=== PATIENT | female | born 1960 | race Two or more races ===

== ENCOUNTER 2024-11-23 08:50 | Outpatient (AMB) | payer OTHER, SELFPAY ==
--- NOTE | 2024-11-23 09:15 | MHC.OFFVIS ---
Vital Signs 11/23/24 09:18 BP 122/72 Blood Pressure Location Lt brachial Position Sitting Pulse 61 Pulse Source Pulse Oximeter Pulse Oximetry (%) 98 Oxygen Delivery Method Room Air Intake Visit Reasons: aortitis Intake Note: Patient presents for aoritis today and knee pain. 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 Patient is scheduled as follow-up. Patient does not recall seeing me in the past before. I have changed practices from [facility] to [facility] and I do not have any records from [facility]. I was able to obtain records through [facility] EMR about patient's admission in April 2024 and 08/11/2024. She is accompanied with her son who interprets. Patient is Pashto-speaking. Patient initially presented with headache and visual disturbance (reported in PCPs note as teary eye and not actual visual disturbance) to [facility] in April and was transferred to [facility] for neurological evaluation. There was concern for GCA due to elevated inflammatory markers (ESR 40 and CRP 1.8 [facility] with repeat ESR 31 and CRP 1.5 [facility]). She had left temporal artery biopsy, which was unremarkable for GCA. She was treated at that visit with pulse dose steroids 500 mg x 3 days with benefit. MRI brain did not reveal acute process. She was prescribed a prednisone course but did not complete it due to anxiety and tremors. Her son reports that she may have taken it for 2 days. She then presented to [facility] 07/25/2024 with bilateral flank pain radiating to groin and subjective fevers. CT angio chest abdomen pelvis was performed and revealed questionable inflammatory changes involving the origin of the celiac and superior mesenteric artery concerning for large vessel vasculitis, focal stenosis of the celiac artery (patent distal to the site of stenosis). There was no evidence of aortic aneurysm or dissection. She has hepatomegaly with hepatic steatosis. Inflammatory markers were elevated with ESR 77 millimeters/hour, CRP 6.3 no units given, rheumatoid factor mildly elevated at 23.. 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 During her hospitalization she received Solu-Medrol 125 mg IV. She feels well at this time. She reports that she has headache once or twice a week but it is not localized. Headache resolves with Tylenol 1000 mg once. Denies visual changes, jaw claudication, scalp tenderness. She denies having chest pain or abdominal pain, pleurisy, dyspnea, oral ulceration or genital ulcerations, urinary symptoms, joint pain, joint swelling Or rash or Raynaud's phenomenon. No Known rheumatological family history. She has history of known right MCA aneurysm, hyperlipidemia, prediabetes, osteoarthritis, depression and anxiety. [facility] Medical History (Updated 11/25/24 @ 21:36 by Tevin Guzman MD) Abdominal pain Abnormal abdominal CT scan Vasculitis Hyperglycemia Obesity Fatigue GERD without esophagitis Anxiety Psychophysiological insomnia Knee pain Elevated rheumatoid factor Aortitis Review of Systems Const All systems reviewed & are unremarkable except as noted in HPI and below Physical Exam Vital Signs: Last Vital Signs Pulse 61 11/23/24 09:18 BP 122/72 11/23/24 09:18 Pulse Ox 98 11/23/24 09:18 Oxygen Delivery Method Room Air 11/23/24 09:18 Const Other: General: Comfortable CVS: RRR Respiratory: clear to auscultation bilaterally. Good respiratory effort Skin: No lesions seen Abdomen: Tender to palpate left lower abdomen. Soft. No guarding. MSK: No temporal tenderness. No jaw tenderness on palpation. No tenderness of any joints. No synovitis. Good ROM UE and LE. +2 radial pulses bilateral. Assessment & Plan Assessment & Plan (1) Large vessel vasculitis: Comment: suspected based on CTA chest/abdomen/pelvis revealing questionable inflammatory changes involving the origin of the celiac and superior mesenteric artery concerning for large vessel vasculitis, focal stenosis of the celiac artery and elevated inflammatory markers (ESR 77 and CRP 6.3) 07/2024 hospitalization. L TA bx negative. Her current headache is intermittent and not suggestive of headache assocaited with GCA. She did not tolerate prednisone after 2 days on 2 separate occasions (04/2024 and 07/2024) due to anxiety, insomnia, tremor, mood liability, weakness, fatigue and discontinued it. She is asymptomatic at this time. I will need to repeat imaging and inflammatory markers. Code(s): M31.6 - Other giant cell arteritis Category: Medical Plan: Labs ordered for baseline including inflammatory markers I will repeat CTA chest, abdomen, pelvis urgent follow-up study. If she indeed has imaging findings of large vessel vasculitis, I will need to consider methylprednisolone with Actemra to treat disease as patient could not tolerate prednisone. If CTAs do not show definite changes of LVV but remain questionable, I will need to pursue MRAs for further evaluations as LVV is a lifethreatening condition if left untreated. Return to clinic in 1 month or sooner if CTA results become available Orders: Orders Erythrocyte Sedimentation Rate 11/23/24 I77.6 - Arteritis, unspecified C Reactive Protein 11/23/24 I77.6 - Arteritis, unspecified Aspartate Amino Transferase 11/23/24 Z79.60 - lecturer in computer science (current) use of unspecified immunomodulators and immunosuppressants Complete Blood Count Auto Diff 11/23/24 Z79.60 - lecturer in computer science (current) use of unspecified immunomodulators and immunosuppressants Alanine Aminotransferase 11/23/24 Z79.60 - nursing home (current) use of unspecified immunomodulators and immunosuppressants Creatinine 11/23/24 Z79.60 - lecturer in computer science (current) use of unspecified immunomodulators and immunosuppressants Coding Level of Care Code New Pt Level 5 (24116) Diagnoses Large vessel vasculitis M31.6 Time Spent (min) 60 Comment Face to face consultation with patient and reviewing records
[2024-11-23 09:18] VITALS: BP 122/72; PULSE 61; O2SAT 98
== END 2024-11-23 10:16 | disposition home or self-care (01) ==
PROVIDERS: PCP Internal Medicine; Visit Provider Internal Medicine Rheumatology
DX: M31.6 Other giant cell arteritis (principal)
CPT/HCPCS: 99205

== ENCOUNTER 2024-11-23 08:50 | Outpatient (REF) | payer OTHER, SELFPAY ==
[2024-11-23 13:06] LABS: MANUAL DIFF FLAG NO
[2024-11-23 13:14] LABS: Basophils Percent Auto 0.5 % (0-2); Eosinophils Absolute Auto 0.2 X10*3/uL (0.0-0.4); Eosinophils Percent Auto 1.9 % (0-4); Imm Gran Abs Auto 0.03 X10*3/uL (0.00-0.03); Imm Gran Pct Auto 0.3 % (0.0-0.4); Lymphocytes Percent Auto 46.2 % (20-40); Mean Corpuscular HGB Conc 33.3 g/dl (31.0-35.0); Mean Corpuscular Hemoglobin 28.3 pg (27.0-33.0); Mean Corpuscular Volume 84.8 fL (80.0-98.0); Mean Platelet Volume 11.5 fL (9.4-12.3); Monocytes Absolute Auto 0.6 X10*3/uL (0.1-1.2); Monocytes Percent Auto 6.6 % (2-11); Neutrophils Absolute Auto 3.8 x10*3/uL (2.0-8.3); Neutrophils Percent Auto 44.5 % (45-73); Platelet Count 313 X10*3/uL (160-400); Red Blood Count 4.95 X10*6/uL (4.20-5.50); Red Cell Distribution Width 12.5 % (11.0-16.0); White Blood Count 8.6 X10*3/uL (4.8-10.8)
[2024-11-23 13:25] LABS: Alanine Aminotransferase 22 U/L (0-31); Aspartate Amino Transferase 27 U/L (5-31); C Reactive Protein 1.53 mg/dL (< or = 0.50); Estimated Glomerular Filt Rate > 60
[2024-11-23 13:49] LABS: Erythrocyte Sedimentation Rate 51 MM/HR (0-20)
== END 2024-11-23 08:51 | disposition home or self-care (01) ==
LOC: HO.HMGCLDS 08:50
PROVIDERS: PCP Internal Medicine; Visit Provider Internal Medicine Rheumatology
DX: I77.6 Arteritis, unspecified (principal); Z79.60 Long term (current) use of unspecified immunomodulators and immunosuppressants; M31.6 Other giant cell arteritis
CPT/HCPCS: 36415; 82565; 84450; 84460; 85025; 85652; 86140; 99202

== ENCOUNTER 2025-01-02 14:18 | Outpatient (REF) | payer MEDICARE, MEDICAID, SELFPAY ==
--- OUTSIDE RECORDS SUMMARY | 2025-01-03 08:57 | XMS_ITS | Clinical Summary ---
Author Organization [facility] Address [address] [place] [address] Phone Care Team Providers Care Retail Seasonal Specialist Name Role Phone Physician, No Pcp Primary Care Provider Unavaila ble Allergies No known active allergies Medications No known medications Active Problems No known active problems Encounters Date Type Department Care Team Description 11/18/2024 6:12 PM EST - 11/18/2024 7:53 PM EST Emergency [facility] Emergency [address] [place] [address] Adenovirus infection (Primary Dx); Acute non-recurrent maxillary sinusitis Discharge Disposition: Home or Self Care from Last 3 Months Medical History Medical History Date Comments Hyperlipidemia Anxiety Prediabetes Social History Tobacco Use Types Packs/Day Years Used Date Smoking Tobacco: Never Assessed Comments Unknown Sex and Gender Information Value Date Recorded Sex Assigned at Female 11/18/2024 6:21 PM EST Legal Sex Female 1:56 PM EST Gender Identity Female 11/18/2024 6:21 PM EST Sexual Orientation Straight 11/18/2024 6: 21 PM EST Obstetrics History Last Filed Vital Signs Vital Sign Reading Time Taken Comments Blood Pressure 149/84 11/18/2024 7:14 PM EST Pulse 63 11/18/2024 7:14 PM EST Temperature 36.4 ??C (97.5 ??F) 11/18/2024 7:14 PM ES T Respiratory Rate 18 11/18/2024 7:14 PM EST Oxygen Saturation 97% 11/18/2024 7:14 PM EST Inhaled Oxygen Concentration - - Weight 63.5 kg (140 lb) 11/18/2024 2:14 PM EST Height 157.5 cm (5' 2 ) 11/18/2024 2:14 PM EST Body Mass Index 25.61 11/18/2024 2:14 PM EST Plan of Treatment Health Maintenance Due Date Last Done Comments Breast Cancer Screening 1960 Cholesterol Screening (Lipid Panel) 10/21/2022 Colorectal Cancer Screening: Colonoscopy 10/21/2022 Depression Screening 10/21/2022 Hepatitis C Screening 10/21/2022 Medicare Annual Wellness Visit 10/21/2022 Osteoporosis Screening (Bone Density Screening) 10/21/2022 Social Influencers of Health Screening 10/21/2022 Falls Risk Assessment 2023 Zoster Vaccines (2 of 2) 06/11/2024 04/16/2024 COVID-19 Vaccine (1 - season) 2024 Influenza Vaccine (#1) 2024 , 04/16/2022, 12/01/2019, Additional history exists DTaP,Tdap,and Td Vaccines (2 - Td or Tdap) 05/28/2025 05/28/2015 RSV Immunization Patients 60+ Years Old (1 - 1-dose 75+ series) 2033 Pneumococcal Vaccine: 50+ Years Completed 12/29/2023 HIB Vaccines Aged Out No longer eligi ble based on patient's age to complete this topic HPV Vaccines Aged Out No longer eligi ble based on patient's age to complete this topic Hepatitis A Vaccines Aged Out No long er eligible based on patient's age to complete this topic Hepatitis B Vaccines Aged Out No long er eligible based on patient's age to complete this topic IPV Vaccines Aged Out No longer eligi ble based on patient's age to complete this topic MMR Vaccines Aged Out No longer eligi ble based on patient's age to complete this topic Meningococcal ACWY Vaccine Aged Out N o longer eligible based on patient's age to complete this topic RSV Immunization Patients Under 20 months Aged Out No longer eligible based on patient's age to complete this topic Varicella Vaccines Aged Out No longer eligible based on patient's age to complete this topic Procedures Procedure Name Priority Date/Time Associated Diagnosis Comments RESPIRATORY VIRUS PANEL MOLECULAR STUDY STAT 11/18/2024 2:17 PM EST from Last 3 Months Results * (ABNORMAL) Respiratory virus panel molecular study (11/18/2024 2:17 PM EST) [facility] Adenovirus Detection by PCR Detected(A ) Not Detected LAB MICROBIOLOGY METHOD 11/18/2024 3:58 PM EST [facility] Influenza A PCR Not Detected Not Detected LAB MICROBIOLOGY METHOD 11/18/2024 3:58 PM EST [facility] Influenza B PCR Not Detected Not Detected LAB MICROBIOLOGY METHOD 11/18/2024 3:58 PM EST [facility] Coronavirus 229E Not Detected Not Detected LAB MICROBIOLOGY METHOD 11/18/2024 3:58 PM EST [facility] Coronavirus HKU1 Not Detected Not Detected LAB MICROBIOLOGY METHOD 11/18/2024 3:58 PM EST [facility] Coronavirus OC43 Not Detected Not Detected LAB MICROBIOLOGY METHOD 11/18/2024 3:58 PM EST [facility] Coronavirus NL63 Not Detected Not Detected LAB MICROBIOLOGY METHOD 11/18/2024 3:58 PM EST [facility] Parainfluenza Virus 1 Not Detected Not Detected LAB MICROBIOLOGY METHOD 11/18/2024 3:58 PM EST [facility] Parainfluenza Virus 2 Not Detected Not Detected LAB MICROBIOLOGY METHOD 11/18/2024 3:58 PM EST [facility] Parainfluenza Virus 3 Not Detected Not Detected LAB MICROBIOLOGY METHOD 11/18/2024 3:58 PM EST [facility] Parainfluenza Virus 4 Not Detected Not Detected LAB MICROBIOLOGY METHOD 11/18/2024 3:58 PM EST [facility] RSV PCR Not Detected Not Detected LAB MICROBIOLOGY METHOD 11/18/2024 3:58 PM EST [facility] Human Metapneumovirus A and B Not Detected Not Detected LAB MICROBIOLOGY METHOD 11/18/2024 3:58 PM EST [facility] Rhinovirus/Entero virus Not Detected Not Detected LAB MICROBIOLOGY METHOD 11/18/2024 3:58 PM EST [facility] Bordetella pertussis Not Detected Not Detected LAB MICROBIOLOGY METHOD 11/18/2024 3:58 PM EST [facility] Bordetella parapertussis Not Detected Not Detected LAB MICROBIOLOGY METHOD 11/18/2024 3:58 PM EST [facility] Mycoplasma pneumo by PCR Not Detected Not Detected LAB MICROBIOLOGY METHOD 11/18/2024 3:58 PM EST [facility] Chlamydia pneumoniae Not Detected Not Detected LAB MICROBIOLOGY METHOD 11/18/2024 3:58 PM [facility] SARS COV-2 Not Detected Not Detected LAB MICROBIOLOGY METHOD 11/18/2024 3:58 PM [facility] Swab Both anterior nares / Unknown Non-blood Collection / Unknown 11/18/2024 2:17 PM EST 11/18/2024 2:40 PM EST [facility] - 11/18/2024 3:58 PM EST Testing was performed using the [employer] Respiratory Pathogen PCR Assay. All results must be correlated with the clinical findings. Results should not be used as the sole basis for diagnosis. False Negative results may occur from the presence of sequence variants in the region targeted by the assay or the presence of inhibitors. Results may be affected by concurrent antiviral/antimicrobial therapy or levels of organisms that are below the limit of detection. Rios Gomes MD LAB MICROBIOLOGY - GENERA L ORDERABLES Final Result [facility] [address] [place] [address], from Last 3 Months Additional Health Concerns Infection Onset Date Last Indicated Adenovirus 11/18/2024 11/18/2024 [place] Care Teams Retail Seasonal Specialist Relationship Specialty Start Date End Date Physician, No Pcp PCP - General 11/18/24
== END 2025-01-02 14:19 | disposition home or self-care (01) ==
LOC: HO.CT 14:18
PROVIDERS: PCP Internal Medicine; Visit Provider Internal Medicine Rheumatology
DX: M31.6 Other giant cell arteritis (principal)
CPT/HCPCS: 99212

== ENCOUNTER 2025-01-02 14:19 | Outpatient (AMB) | payer MEDICARE, MEDICAID, SELFPAY ==
--- NOTE | 2025-01-02 14:24 | MHC.OFFVIS ---
Vital Signs 01/02/25 14:26 Height 5 ft 3 in Weight 186 lb 8 oz BMI 33.0 BP 122/74 Blood Pressure Location Rt brachial Position Sitting Pulse 62 Pulse Source Pulse Oximeter Pulse Oximetry (%) 96 Oxygen Delivery Method Room Air Intake Visit Reasons: Follow Up 1mo Intake Note: Patient present follow up Accompanied by: Son Allergies No Known Allergies Allergy (Verified 01/02/25 14:27) [facility] HPI Follow Up 1mo: Details: Son interprets. Serbian speaking patient. 3 weeks ago she has abdominal pain lasting a week, improving in frequency. Last abdominal pain was 2 days ago. Discomfort is always there. Hx GERD on PPI. No fevers, headaches, jaw pain, scalp pain, vision loss, diarrhea, constipation, urinary symptoms, joint swelling, rash, oral ulcers. She had an episode of bloody stools 2 days ago without recurrence. Denies having hemorrhoids. Hx of surgery for hemorrhoids in the past. [facility] Medical History Abdominal pain Abnormal abdominal CT scan Vasculitis Hyperglycemia Obesity Fatigue GERD without esophagitis Anxiety Psychophysiological insomnia Knee pain Elevated rheumatoid factor Aortitis Review of Systems Const All systems reviewed & are unremarkable except as noted in HPI and below Physical Exam Vital Signs: Last Vital Signs Pulse 62 01/02/25 14:26 BP 122/74 01/02/25 14:26 Pulse Ox 96 01/02/25 14:26 Oxygen Delivery Method Room Air 01/02/25 14:26 BMI result Body Mass Index 33.0 Const Other: General: Comfortable CVS: RRR Respiratory: clear to auscultation bilaterally. Good respiratory effort Skin: No lesions seen Abdomen: Tender to palpate epigastrium. Soft. No guarding. MSK: No temporal tenderness. No jaw tenderness on palpation. No tenderness of any joints. No synovitis. Good ROM UE and LE. +2 radial pulses bilateral. Assessment & Plan Assessment & Plan (1) Large vessel vasculitis: Comment: suspected based on CTA chest/abdomen/pelvis revealing questionable inflammatory changes involving the origin of the celiac and superior mesenteric artery concerning for large vessel vasculitis, focal stenosis of the celiac artery and elevated inflammatory markers (ESR 77 and CRP 6.3) 07/2024 hospitalization. L TA bx negative. Recent laboratory workup revealed persistent elevation of inflammatory markers with ESR 51 millimeters/hour and CRP 1.53 mg/dL. She has been experiencing abdominal pain for the last 3 weeks. CTA chest/abdomen/pelvis are scheduled in January, which I have asked to move up for evaluation of large vessel vasculitis as it will necessitate immunosuppressive therapy tocilizumab. Of note, she did not tolerate prednisone after 2 days on 2 separate occasions (04/2024 and 07/2024) due to anxiety, insomnia, tremor, mood liability, weakness, fatigue and discontinued it. Code(s): M31.6 - Other giant cell arteritis Category: Medical Plan: Laboratory workup for vasculitis ordered CTA chest/abdomen/pelvis scheduled for January 23. My staff has requested Radiology to move up the appointment as it was ordered as urgent (1-2 weeks). We discussed dietary triggers that are associated with GERD. I recommend that she avoid spicy food, tomato sauce, caffeinated drinks, and chocolate Return to clinic in 1 month or sooner if imaging results are available sooner Orders: Orders Proteinase 3 PR3 Antibodies Today M31.6 - Other giant cell arteritis Cryoglobulin Today M31.6 - Other giant cell arteritis C Reactive Protein Today M31.6 - Other giant cell arteritis Erythrocyte Sedimentation Rate Today M31.6 - Other giant cell arteritis ESTEBAN Reflex Titer and Pattern Today M31.6 - Other giant cell arteritis Cyclic Citrullinated Peptide Today M31.6 - Other giant cell arteritis Other Ref Test - Misc Today I77.6 - Arteritis, unspecified, M31.6 - Other giant cell arteritis ANCA Vasculitides Today M31.6 - Other giant cell arteritis Myeloperoxidase Antibody Today M31.6 - Other giant cell arteritis UA w Microscopic Today M31.6 - Other giant cell arteritis Protein Creatinine Ratio, Ur Today M31.6 - Other giant cell arteritis Rheumatoid Factor Today M31.6 - Other giant cell arteritis Protein Electrophoresis, Serum Today M31.6 - Other giant cell arteritis IgE Antibody (Anti-IgE IgG) Today M31.6 - Other giant cell arteritis Coding Level of Care Code Est Pt Level 4 (59246) Complex EM visit Add On G2211 Diagnoses Large vessel vasculitis M31.6
[2025-01-02 14:26] VITALS: BP 122/74; PULSE 62; O2SAT 96; BMI 33.0
== END 2025-01-02 15:21 | disposition home or self-care (01) ==
PROVIDERS: PCP Internal Medicine; Visit Provider Internal Medicine Rheumatology
DX: M31.6 Other giant cell arteritis (principal)
CPT/HCPCS: 99214; G2211

== ENCOUNTER 2025-01-15 13:48 | Outpatient (REF) | payer MEDICARE, MEDICAID, SELFPAY ==
--- NOTE | ~2025-01-15 | CT_ITS ---
EXAMINATION: CT ANGIOGRAM CHEST CLINICAL INFORMATION: Patient had CTA chest/abdomen/pelvis 08/11/2024 [facility] revealing questionable inflammatory changes involving the origins of the celiac and superior mesenteric artery concerning for large vessel vasculitis, focal stenosis of the celiac artery (patent distal to site of stenosis). Elevated inflammatory markers. Negative left temporal artery biopsy for GCA. Follow-up study to evaluate for large vessel vasculitis. COMPARISON: None available. The prior study is not available for direct comparison. TECHNIQUE: Multiple axial images were obtained through the chest after the administration of 85 mL of Omnipaque 350 intravenous contrast. Acquisition acquired in arterial phase. Examination is not gated. Extensive vascular post-processing including two-dimensional and three-dimensional reformatted images were created and reviewed on an independent workstation. This CT examination was performed using dose optimization techniques as appropriate, variously including the following: *Automated exposure control *Adjustment of mA and/or kV according to patient size (this includes techniques or standardized protocols for targeted exams where dose is matched to indication/reason for exam; i.e. extremities or head) *Use of iterative reconstruction technique FINDINGS: VASCULAR: The aorta is normal in caliber and course without significant atheromatous calcification. The aortic root appears normal. There is no aneurysm or acute aortic syndrome. No wall thickening or inflammation. There is a left aortic arch with an aberrant right subclavian artery. Great vessels are normal in caliber and mildly tortuous proximally. The subclavian arteries, brachiocephalic artery, and common carotid arteries are normal in caliber. There are no stenoses or findings of vasculitis. No inflammation or wall thickening evident. Left vertebral artery is dominant. Vertebral origins are otherwise normal. The main pulmonary artery is normal in size. There is no evidence of pulmonary embolus. Heart size is normal. There is no pericardial effusion. No significant coronary calcification evident. LUNGS: The lungs are clear bilaterally. There is no evidence of inflammation, abnormal opacity, or suspicious pulmonary nodule. There are no pleural effusions and there is no pneumothorax. Small and large airways are normal. MEDIASTINUM: There is no mass or lymphadenopathy in the mediastinum. The trachea and main bronchi are patent. The esophagus is unremarkable. The thyroid is partially imaged and normal. AXILLA/CHEST WALL: No mass or lymphadenopathy. UPPER ABDOMEN: Refer to the dedicated CT angiogram abdomen and pelvis report, performed concurrently. OSSEOUS STRUCTURES: Unremarkable. CT/CT angio chest aorta IMPRESSION: 1. CT angiogram thorax demonstrate a normal aorta and branches. There are no findings of inflammation, acute aortic syndrome, or aneurysm. There is no significant atheromatous plaque identified. There are no stenoses or narrowings of the major arterial structures. 2. There is a left aortic arch with an aberrant right subclavian artery. 3. The lungs are clear without evidence of active disease. 4. Refer to the dedicated CT angiogram abdomen and pelvis performed concurrently Electronically signed by: Gavino Cantor MD 01/15/2025 04:10 PM [facility] [place]
--- NOTE | ~2025-01-15 | CT_ITS ---
EXAMINATION: CT ANGIOGRAM ABDOMEN AND PELVIS CLINICAL INFORMATION: Patient had CTA chest/abdomen/pelvis 08/11/2024 [facility] revealing questionable inflammatory changes involving the origins of the celiac and superior mesenteric artery concerning for large vessel vasculitis, focal stenosis of the celiac artery (patent distal to site of stenosis). Elevated inflammatory markers. Negative left temporal artery biopsy for GCA. Follow-up study to evaluate for large vessel vasculitis. COMPARISON: Comparison exam from [facility] is not available. TECHNIQUE: Multiple axial images were obtained through the abdomen and pelvis following the administration of 100 mL of Omnipaque 350 intravenous contrast. Acquisition obtained in the arterial phase. Images were reviewed on a dedicated 3-D workstation and multiplanar and MIPPED reformatted images were constructed from the axial data set.. This CT examination was performed using dose optimization techniques as appropriate, variously including the following: *Automated exposure control *Adjustment of mA and/or kV according to patient size (this includes techniques or standardized protocols for targeted exams where dose is matched to indication/reason for exam; i.e. extremities or head) *Use of iterative reconstruction technique FINDINGS: VASCULAR: Aorta is normal in caliber without aneurysm or dissection. There is minimal atheromatous calcification. The celiac artery is mildly narrowed at the origin due to calcific plaque. Remainder of the vessel and its branches are normal in caliber without narrowing, wall thickening, or inflammation. There are no inflammatory changes surrounding the ostia. The SMA also demonstrates a mild stenosis at the origin secondary to soft and calcific plaque. The remainder of the vessel and its branches are normal in caliber without narrowing, wall thickening, or inflammation. There are no inflammatory changes surrounding the ostia. There are paired left main renal arteries which the lower is dominant, without narrowing or stenosis. There is a solitary right renal artery, which is widely patent without stenosis. The CHAPITO is normal in caliber and course with normal opacification of the distal branches. The common iliac arteries, hypogastric arteries, and external iliac arteries are normal in caliber and course without narrowing. The imaged common femoral, and profunda femoral arteries are normal in caliber without stenoses. LIVER, GALLBLADDER, AND BILIARY TREE: There is mild diffuse fatty infiltration of the liver. There are no suspicious liver findings or masses. There is no intra or extrahepatic biliary dilatation. The gallbladder has a normal appearance. The main portal vein is patent. PANCREAS: Normal. SPLEEN: Normal allowing for contrast phase. ADRENAL GLANDS AND KIDNEYS: Adrenals are normal. The kidneys are normal. The ureters are nondilated. BOWEL: The stomach is somewhat decompressed. Duodenum is normal. The small bowel is normal in caliber and course without inflammation or wall thickening. The colon is normal in caliber and course without wall thickening or inflammation. The rectum is normal. There are no CT features of appendicitis. LYMPH NODES: None enlarged by size criteria. OSSEOUS STRUCTURES: Mild degenerative changes in the hip joints. Mild degenerative changes spine. No suspicious lytic or blastic bone lesions. CT/CT angio abdomen pelvis IMPRESSION: 1. There are no CT features of vasculitis, aortic aneurysm, or significant aortic or branch stenosis. There are mild stenoses at the origin of the celiac artery and SMA which appear to be secondary to mild plaque. Remainder of the vessels are normal. No inflammatory changes surrounding the ostia. 2. There is minimal atheromatous plaque of the aorta and branches. 3. There is mild fatty infiltration of the liver. 4. See the body of the report for details. Electronically signed by: Gavino Cantor MD 01/15/2025 04:27 PM [facility]
[2025-01-15] MEDS: iohexoL 350 MG/ML 75 ML INFUS..BTL 80 ML IV (15:24)
[2025-01-15 15:43] LABS: Creatinine POC 0.7 mg/dL (0.5-1.4); GFR POC > 60
--- OUTSIDE RECORDS SUMMARY | 2025-01-15 15:48 | XMS_ITS | Clinical Summary ---
Author Organization [facility] Address [address] [place] [address] Phone Care Team Providers Care Chronic Disease Epidemiologist Name Role Phone Physician, No Pcp Primary Care Provider Unavaila ble Allergies No known active allergies Medications No known medications Active Problems No known active problems Encounters Date Type Department Care Team Description 11/18/2024 6:12 PM EST - 11/18/2024 7:53 PM EST Emergency [facility] Emergency [address] [place] [address] Adenovirus infection (Primary Dx); Acute [...] patient's age to complete this topic Meningococcal B Vacine Aged Out No lo nger eligible based on patient's age to complete [...] panel molecular study (11/18/2024 2:17 PM EST) Adenovirus Detection by PCR Detected(A ) Not Detected LAB MICROBIOLOGY METHOD 11/18/2024 3:58 PM EST [facility] Influenza A PCR Not Detected Not Detected LAB MICROBIOLOGY METHOD 11/18/2024 3:58 PM EST [facility] Influenza B PCR Not Detected Not Detected LAB MICROBIOLOGY METHOD 11/18/2024 3:58 PM EST [facility] Coronavirus 229E Not Detected Not Detected LAB MICROBIOLOGY METHOD 11/18/2024 3:58 PM [facility] Coronavirus HKU1 Not Detected Not Detected LAB MICROBIOLOGY METHOD 11/18/2024 3:58 PM EST [facility] Coronavirus OC43 Not Detected Not Detected LAB MICROBIOLOGY METHOD 11/18/2024 3:58 PM EST [facility] Coronavirus NL63 Not Detected Not Detected LAB MICROBIOLOGY METHOD 11/18/2024 3:58 PM [facility] Parainfluenza Virus 1 Not Detected Not Detected LAB MICROBIOLOGY METHOD 11/18/2024 3:58 PM [facility] Parainfluenza Virus 2 Not Detected Not Detected LAB MICROBIOLOGY METHOD 11/18/2024 3:58 PM [facility] Parainfluenza Virus 3 Not Detected Not Detected LAB MICROBIOLOGY METHOD 11/18/2024 3:58 PM [facility] Parainfluenza Virus 4 Not Detected Not Detected LAB MICROBIOLOGY METHOD 11/18/2024 3:58 PM EST [facility] RSV PCR Not Detected Not Detected LAB MICROBIOLOGY METHOD 11/18/2024 3:58 PM [facility] Human Metapneumovirus A and B Not Detected Not Detected LAB MICROBIOLOGY METHOD 11/18/2024 3:58 PM [facility] Rhinovirus/Entero virus Not Detected Not Detected LAB MICROBIOLOGY METHOD 11/18/2024 3:58 PM EST [facility] Bordetella pertussis Not Detected Not Detected LAB MICROBIOLOGY METHOD 11/18/2024 3:58 PM EST [facility] Bordetella parapertussis Not Detected Not Detected LAB MICROBIOLOGY METHOD 11/18/2024 3:58 PM EST [facility] Mycoplasma pneumo by PCR Not Detected Not Detected LAB MICROBIOLOGY METHOD 11/18/2024 3:58 PM EST [facility] Chlamydia pneumoniae Not Detected Not Detected LAB MICROBIOLOGY METHOD 11/18/2024 3:58 PM EST [facility] SARS COV-2 Not Detected Not Detected LAB MICROBIOLOGY METHOD 11/18/2024 3:58 PM [facility] Swab Both anterior nares / Unknown Non-blood Collection / Unknown 11/18/2024 2:17 PM EST 11/18/2024 2:40 PM EST [facility] - 11/18/2024 3:58 PM EST Testing was performed using the [employer] Respiratory Pathogen PCR Assay. All results must [...] MICROBIOLOGY - GENERA L ORDERABLES Final Result [facility] [address] [place] [address], from Last 3 Months Additional Health Concerns Infection Onset Date Last Indicated Adenovirus 11/18/2024 11/18/2024 Insurance MEDICAID - [place] MEDICARE Care Teams Chronic Disease Epidemiologist Relationship Specialty Start Date End Date Physician, No Pcp PCP - General 11/18/24
[2025-01-15 16:03] LABS: Appearance Urine Clear; Color Urine Yellow; Glucose Urine UA Negative (Negative); Leukocyte Esterase Urine Negative (Negative); Nitrite Urine Negative (Negative); PH 6.5 (5.0-9.0); Specific Gravity - Urine >= 1.030 (1.005-1.025); Urine Blood Negative (Negative); Urine Ketones Negative (Negative); Urine Protein Negative (Neg-Trace)
[2025-01-15 16:06] LABS: Bacteria Urine None Seen (None Seen); Hyaline Casts Urine 0-2 /LPF (0-2); RBC Urine 0-2 /HPF (0-2); Squamous Epithelial Cell Urine 0-2 /HPF (0-2); WBC Urine 0-5 /HPF (0-5)
[2025-01-15 16:42] LABS: Rheumatoid Factor < 13.0 IU/mL (<15.0)
[2025-01-15 16:44] LABS: Creatinine Urine 20.45 mg/dL; Total Protein Urine Random < 7 mg/dL (<12)
[2025-01-15 16:58] LABS: Erythrocyte Sedimentation Rate 24 MM/HR (0-20)
[2025-01-15 17:04] LABS: C Reactive Protein 2.15 mg/dL (< or = 0.50)
[2025-01-16 11:59] LABS: Immunoglobulin G Subclass 1 582 mg/dL (382-929); Immunoglobulin G Subclass 2 397 mg/dL (241-700); Immunoglobulin G Subclass 3 107 mg/dL (22-178); Immunoglobulin G Subclass 4 147.6 mg/dL (4-86); Immunoglobulin G Total 1241 mg/dL (600-1540)
[2025-01-16 20:48] LABS: Myeloperoxidase Antibody <1.0 AI; Proteinase 3 PR3 Antibodies <1.0 AI
== END 2025-01-15 13:49 | disposition home or self-care (01) ==
LOC: HO.CT 13:48
PROVIDERS: PCP Internal Medicine; Visit Provider Internal Medicine Rheumatology
DX: M31.6 Other giant cell arteritis (principal)
CPT/HCPCS: 36415; 71275; 74174; 81001; 82565; 82570; 82595; 82784; 83520; 84156; 84165; 85652; 86021; 86038; 86140; 86200; 86431; Q9967

== ENCOUNTER → 2025-01-15 13:51 | Outpatient (BNV) | payer MEDICARE, MEDICAID, SELFPAY | PROVIDERS: PCP Internal Medicine; Visit Provider Radiology Diagnostic Radiology | DX: Q25.48 Anomalous origin of subclavian artery (principal); M31.6 Other giant cell arteritis | CPT/HCPCS: 71275; 74174 ==

== ENCOUNTER 2025-02-06 13:20 | Outpatient (AMB) | payer MEDICARE, MEDICAID, SELFPAY ==
--- NOTE | 2025-02-06 13:27 | MHC.OFFVIS ---
Vital Signs 02/06/25 13:31 Height 5 ft 3 in Weight 184 lb 15.485 oz BMI 32.8 BP 130/70 Blood Pressure Location Lt brachial Position Sitting Pulse 65 Pulse Source Pulse Oximeter Pulse Oximetry (%) 96 Oxygen Delivery Method Room Air Intake Visit Reasons: 4 Weeks Intake Note: Patient present follow up for vasculitis. Accompanied by: Son Allergies No Known Allergies Allergy (Verified 02/06/25 13:32) HPI HPI 4 Weeks: Details: Thai-speaking patient. Son interprets. Denies fevers, dysuria, cough, rhinorrhea, Raynaud's phenomenon. She continues to have right-sided mid back pain. Urinary frequency 8 times in a day including nocturia for 2 years. She was prescribed a medication but due to side effects, she did not start it. [facility] Medical History Abdominal pain Abnormal abdominal CT scan Vasculitis Hyperglycemia Obesity Fatigue GERD without esophagitis Anxiety Psychophysiological insomnia Knee pain Elevated rheumatoid factor Aortitis Physical Exam Vital Signs: Last Vital Signs Pulse 65 02/06/25 13:31 BP 130/70 02/06/25 13:31 Pulse Ox 96 02/06/25 13:31 Oxygen Delivery Method Room Air 02/06/25 13:31 BMI result Body Mass Index 32.8 Const Other: General: Comfortable CVS: RRR Respiratory: clear to auscultation bilaterally. Good respiratory effort Skin: No lesions seen MSK: No spinous process tenderness. She has tenderness right lower thoracic upper lumbar paraspinal muscles and laterally. No tenderness of any joints. No synovitis. Good ROM UE and LE. +2 radial pulses bilateral. Results Reviewed Results Reviewed: [address] [address] [address] Scan Report Signed Patient: Cara Post MR#: [id number] : 1960 Acct:[id number] ADM Date: 01/15/[address]: Tevin Guzman MD Ordering Physician: Tevin Guzman MD Date of Service: 01/15/25 Procedure(s): CT angio chest aorta Accession Number(s): [id number] cc: Tevin Guzman MD; WON SAXENA MD~ Report Number: [id number]: Total DLP = 310.00 mGy-cm EXAMINATION: CT ANGIOGRAM CHEST CLINICAL INFORMATION: Patient had CTA chest/abdomen/pelvis 08/11/2024 [facility] revealing questionable inflammatory changes involving the origins of the celiac and superior mesenteric artery concerning for large vessel vasculitis, focal stenosis of the celiac artery (patent distal to site of stenosis). Elevated inflammatory markers. Negative left temporal artery biopsy for GCA. Follow-up study to evaluate for large vessel vasculitis. COMPARISON: None available. The prior study is not available for direct comparison. TECHNIQUE: Multiple axial images were obtained through the chest after the administration of 85 mL of Omnipaque 350 intravenous contrast. Acquisition acquired in arterial phase. Examination is not gated. Extensive vascular post-processing including two-dimensional and three-dimensional reformatted images were created and reviewed on an independent workstation. This CT examination was performed using dose optimization techniques as appropriate, variously including the following: *Automated exposure control *Adjustment of mA and/or kV according to patient size (this includes techniques or standardized protocols for targeted exams where dose is matched to indication/reason for exam; i.e. extremities or head) *Use of iterative reconstruction technique FINDINGS: VASCULAR: The aorta is normal in caliber and course without significant atheromatous calcification. The aortic root appears normal. There is no aneurysm or acute aortic syndrome. No wall thickening or inflammation. There is a left aortic arch with an aberrant right subclavian artery. Great vessels are normal in caliber and mildly tortuous proximally. The subclavian arteries, brachiocephalic artery, and common carotid arteries are normal in caliber. There are no stenoses or findings of vasculitis. No inflammation or wall thickening evident. Left vertebral artery is dominant. Vertebral origins are otherwise normal. The main pulmonary artery is normal in size. There is no evidence of pulmonary embolus. Heart size is normal. There is no pericardial effusion. No significant coronary calcification evident. LUNGS: The lungs are clear bilaterally. There is no evidence of inflammation, abnormal opacity, or suspicious pulmonary nodule. There are no pleural effusions and there is no pneumothorax. Small and large airways are normal. MEDIASTINUM: There is no mass or lymphadenopathy in the mediastinum. The trachea and main bronchi are patent. The esophagus is unremarkable. The thyroid is partially imaged and normal. AXILLA/CHEST WALL: No mass or lymphadenopathy. UPPER ABDOMEN: Refer to the dedicated CT angiogram abdomen and pelvis report, performed concurrently. OSSEOUS STRUCTURES: Unremarkable. CT/CT angio chest aorta IMPRESSION: 1. CT angiogram thorax demonstrate a normal aorta and branches. There are no findings of inflammation, acute aortic syndrome, or aneurysm. There is no significant atheromatous plaque identified. There are no stenoses or narrowings of the major arterial structures. 2. There is a left aortic arch with an aberrant right subclavian artery. 3. The lungs are clear without evidence of active disease. [address] [address] [address] Scan Report Signed Patient: Cara Post MR#: [id number] : 12/06/2026 Date of Service: 01/15/25 Procedure(s): CT angio abdomen pelvis Accession Number(s): [id number] cc: Tevin Guzman MD; WON SAXENA MD~ Report Number: [id number]: Total DLP = 310.00 mGy-cm EXAMINATION: CT ANGIOGRAM ABDOMEN AND PELVIS CLINICAL INFORMATION: Patient had CTA chest/abdomen/pelvis 08/11/2024 [facility] revealing questionable inflammatory changes involving the origins of the celiac and superior mesenteric artery concerning for large vessel vasculitis, focal stenosis of the celiac artery (patent distal to site of stenosis). Elevated inflammatory markers. Negative left temporal artery biopsy for GCA. Follow-up study to evaluate for large vessel vasculitis. COMPARISON: Comparison exam from [facility] is not available. TECHNIQUE: Multiple axial images were obtained through the abdomen and pelvis following the administration of 100 mL of Omnipaque 350 intravenous contrast. Acquisition obtained in the arterial phase. Images were reviewed on a dedicated 3-D workstation and multiplanar and MIPPED reformatted images were constructed from the axial data set.. This CT examination was performed using dose optimization techniques as appropriate, variously including the following: *Automated exposure control *Adjustment of mA and/or kV according to patient size (this includes techniques or standardized protocols for targeted exams where dose is matched to indication/reason for exam; i.e. extremities or head) *Use of iterative reconstruction technique FINDINGS: VASCULAR: Aorta is normal in caliber without aneurysm or dissection. There is minimal atheromatous calcification. The celiac artery is mildly narrowed at the origin due to calcific plaque. Remainder of the vessel and its branches are normal in caliber without narrowing, wall thickening, or inflammation. There are no inflammatory changes surrounding the ostia. The SMA also demonstrates a mild stenosis at the origin secondary to soft and calcific plaque. The remainder of the vessel and its branches are normal in caliber without narrowing, wall thickening, or inflammation. There are no inflammatory changes surrounding the ostia. There are paired left main renal arteries which the lower is dominant, without narrowing or stenosis. There is a solitary right renal artery, which is widely patent without stenosis. The CHAPITO is normal in caliber and course with normal opacification of the distal branches. The common iliac arteries, hypogastric arteries, and external iliac arteries are normal in caliber and course without narrowing. The imaged common femoral, and profunda femoral arteries are normal in caliber without stenoses. LIVER, GALLBLADDER, AND BILIARY TREE: There is mild diffuse fatty infiltration of the liver. There are no suspicious liver findings or masses. There is no intra or extrahepatic biliary dilatation. The gallbladder has a normal appearance. The main portal vein is patent. PANCREAS: Normal. SPLEEN: Normal allowing for contrast phase. ADRENAL GLANDS AND KIDNEYS: Adrenals are normal. The kidneys are normal. The ureters are nondilated. BOWEL: The stomach is somewhat decompressed. Duodenum is normal. The small bowel is normal in caliber and course without inflammation or wall thickening. The colon is normal in caliber and course without wall thickening or inflammation. The rectum is normal. There are no CT features of appendicitis. LYMPH NODES: None enlarged by size criteria. OSSEOUS STRUCTURES: Mild degenerative changes in the hip joints. Mild degenerative changes spine. No suspicious lytic or blastic bone lesions. CT/CT angio abdomen pelvis IMPRESSION: 1. There are no CT features of vasculitis, aortic aneurysm, or significant aortic or branch stenosis. There are mild stenoses at the origin of the celiac artery and SMA which appear to be secondary to mild plaque. Remainder of the vessels are normal. No inflammatory changes surrounding the ostia. 2. There is minimal atheromatous plaque of the aorta and branches. 3. There is mild fatty infiltration of the liver. 4. See the body of the report for details. Assessment & Plan Assessment & Plan (1) Large vessel vasculitis: Comment: Initially suspected based on CTA chest/abdomen/pelvis revealing questionable inflammatory changes involving the origin of the celiac and superior mesenteric artery concerning for large vessel vasculitis, focal stenosis of the celiac artery and elevated inflammatory markers (ESR 77 and CRP 6.3) 07/2024 hospitalization. L TA bx negative. Laboratory workup revealed persistent elevation of inflammatory markers. She has downtrending ESR with persistent mild elevation of CRP of unclear etiology. Age and sex suggested upper limit of normal of ESR is 38 millimeters/hour and CRP is 1.9 mg/dL. Her repeat CTA chest/abdomen/pelvis are unremarkable for findings of vasculitis. She does not have any signs or symptoms suggestive of systemic connective tissue disease including systemic lupus erythematosus in setting of high titer positive ESTEBAN. At this time I will not be pursuing further rheumatological workup as my clinical suspicion for connective tissue disease is low. Her mid back pain is related to MSK strain. We discussed conservative management for myofascial pain. Code(s): M31.6 - Other giant cell arteritis Category: Medical Plan: No further rheumatological workup is recommended at this time. Apply heat to back Try lidocaine patch applied to back as needed Reduce frequency of bending down when doing chores. I recommended that she stretch her chores out to be completed during the week. I recommended physical therapy. Patient will call office if she would like to pursue physical therapy PCP follow-up for further evaluation of elevated inflammatory markers. Ensure age-appropriate cancer screening is up-to-date. (2) Myofascial low back pain: Code(s): M54.50 - Low back pain, unspecified Category: Medical Plan: See above Return to clinic PRN Coding Level of Care Code Est Pt Level 4 (92559) Complex EM visit Add On G2211 Diagnoses Large vessel vasculitis M31.6 Myofascial low back pain M54.50
[2025-02-06 13:31] VITALS: BP 130/70; PULSE 65; O2SAT 96; BMI 32.8
--- OUTSIDE RECORDS SUMMARY | 2025-02-06 15:38 | XMS_ITS | Clinical Summary ---
Author Organization [facility] Address [address] [place] [address] Phone Care Team Providers Care It Desktop Support Technician Name Role Phone Physician, No Pcp Primary Care Provider Unavaila ble Allergies No known active allergies Medications No known medications Active Problems No known active problems Encounters Date Type Department Care Team Description 11/18/2024 6:12 PM EST - 11/18/2024 7:53 PM EST Emergency [facility] Emergency [address] [place] [address] Adenovirus infection (Primary Dx); Acute [...] Detected LAB MICROBIOLOGY METHOD 11/18/2024 3:58 PM [facility] Coronavirus HKU1 Not Detected Not Detected LAB MICROBIOLOGY METHOD 11/18/2024 3:58 PM EST [facility] Coronavirus OC43 Not Detected Not Detected LAB MICROBIOLOGY METHOD 11/18/2024 3:58 PM EST [facility] Coronavirus NL63 Not Detected Not Detected LAB MICROBIOLOGY METHOD 11/18/2024 3:58 PM [facility] Parainfluenza Virus 1 Not Detected Not Detected LAB MICROBIOLOGY METHOD 11/18/2024 3:58 PM [facility] Parainfluenza Virus 2 Not Detected Not Detected LAB MICROBIOLOGY METHOD 11/18/2024 3:58 PM [facility] Parainfluenza Virus 3 Not Detected Not Detected LAB MICROBIOLOGY METHOD 11/18/2024 3:58 PM [facility] Parainfluenza Virus 4 Not Detected Not Detected LAB MICROBIOLOGY METHOD 11/18/2024 3:58 PM EST [facility] RSV PCR Not Detected Not Detected LAB MICROBIOLOGY METHOD 11/18/2024 3:58 PM [facility] Human Metapneumovirus A and B Not Detected Not Detected LAB MICROBIOLOGY METHOD 11/18/2024 3:58 PM [facility] Rhinovirus/Entero virus Not Detected Not Detected [...] Detected LAB MICROBIOLOGY METHOD 11/18/2024 3:58 PM [facility] Swab Both anterior nares / Unknown Non-blood Collection / Unknown 11/18/2024 2:17 PM EST 11/18/2024 2:[address] [facility] - 11/18/2024 3:58 PM EST Testing was performed using the [employer] Respiratory Pathogen PCR Assay. All results must [...] Final Result [facility] [address] [place] [address], from Last 3 Months Additional Health Concerns Infection Onset Date Last Indicated Adenovirus 11/18/2024 11/18/2024 Insurance MEDICAID - [place] MEDICARE Care Teams It Desktop Support Technician Relationship Specialty Start Date End Date Physician, No Pcp PCP - General 11/18/24
== END 2025-02-06 14:23 | disposition home or self-care (01) ==
LOC: HO.RHES 13:20
PROVIDERS: PCP Internal Medicine; Visit Provider Internal Medicine Rheumatology
DX: M31.6 Other giant cell arteritis (principal); M54.50 Low back pain, unspecified
CPT/HCPCS: 99214; G2211

== ENCOUNTER → 2025-02-06 13:20 | Outpatient (BNVA) | payer MEDICARE, MEDICAID, SELFPAY | PROVIDERS: PCP Internal Medicine; Visit Provider Internal Medicine Rheumatology | DX: M54.50 Low back pain, unspecified (principal); M31.6 Other giant cell arteritis; R35.1 Nocturia | CPT/HCPCS: 99212 ==